=== PATIENT | male | born 1995 | race African-American/Black ===

== ENCOUNTER → 2019-03-24 | Outpatient (CLI) | payer OTHER ==
--- NOTE | 2019-03-24 14:29 | REP ---
REASON FOR EXAM: Pain after trauma. PRIORS: None. FINDINGS: The compartments are symmetric and relatively well maintained. There is no acute fracture or destructive osseous lesion. Electronically Signed by Hamilton Duran DO 03/24/2019 03:29 P
== END ==
LOC: M LRY 13:35
PROVIDERS: ATTEND Nurse Practitioner Family
DX: S89.91XA Unspecified injury of right lower leg, initial encounter (principal); X58.XXXA Exposure to other specified factors, initial encounter; Y92.89 Other specified places as the place of occurrence of the external cause